=== PATIENT | female | born 1970 | race Caucasian/White ===

== ENCOUNTER 2017-07-08 07:49 | Day surgery (SDC) | payer MEDICAID ==
[~2017-07-08 07:49] MED LIST: CEFAZOLIN 1 GM INJ; CEFAZOLIN 1 GM/50 ML (PMX) 50 ML IVPB; DEXAMETHASONE 4 MG/ML 1 ML INJ; ONDANSETRON 4 MG INJ; SOD CHLORIDE 0.9% 1,000 ML IV
[2017-07-08] MEDS: INSULIN ASPART [NOVOLOG] 3 ML PEN SC ×2 (10:01→11:29)
[2017-07-08] MEDS ORDERED: HEPARIN 1000 UNITS/ML 10 ML INJ (11:22)
[2017-07-08] MEDS ORDERED: LIDOCAINE 1% (MPF) 30 ML INJ (11:22)
[2017-07-08] MEDS ORDERED: GLUCOSE GEL 15 GRAM TUBE PO ×2 (11:30)
[2017-07-08] MEDS ORDERED: DEXTROSE 50% 50 ML SYRINGE IV ×2 (11:30)
[2017-07-08] MEDS ORDERED: GLUCOSE GEL 15 GRAM TUBE BUCCAL (11:30)
[2017-07-08] MEDS ORDERED: GLUCAGON 1 MG INJ IM (11:30)
[2017-07-08] MEDS ORDERED: MIDAZOLAM 1 MG/ML 2 ML INJ (11:51)
[2017-07-08] MEDS ORDERED: LIDOCAINE 2% (SDV) 5 ML INJ (11:51)
[2017-07-08] MEDS ORDERED: PROPOFOL 20 ML (11:51)
[2017-07-08] MEDS ORDERED: HYDROmorphONE (0.2 MG/ML) 10ML SYG IV (12:48)
[2017-07-08] MEDS ORDERED: ONDANSETRON 4 MG INJ (12:48)
[2017-07-08] MEDS ORDERED: hydrALAzine 20 MG INJ (12:55)
[2017-07-08] MEDS ORDERED: LABETALOL HCL 20MG INJ IV (13:00)
[2017-07-08] MEDS: HYDROmorphONE (0.2 MG/ML) 10ML SYG IV (13:09)
[2017-07-08] MEDS: hydrALAzine 20 MG INJ IV (13:09)
[2017-07-08] MEDS: ONDANSETRON 4 MG INJ IV (13:09)
== END 2017-07-08 14:38 | disposition home or self-care (01) ==
LOC: SDS 07:49
DX: Z45.2 Encounter for adjustment and management of vascular access device (principal); Z85.3 Personal history of malignant neoplasm of breast; E11.9 Type 2 diabetes mellitus without complications; I10 Essential (primary) hypertension; E66.9 Obesity, unspecified; Z68.38 Body mass index [BMI] 38.0-38.9, adult
CPT/HCPCS: 36590; 82962; 84703; 88300

== ENCOUNTER 2017-11-01 20:23 | Emergency (ER) | payer MEDICAID | END 2017-11-02 00:05 | disposition home or self-care (01) | LOC: FTE 11-02 00:05 | DX: L02.415 Cutaneous abscess of right lower limb (principal); I10 Essential (primary) hypertension; E11.9 Type 2 diabetes mellitus without complications; Z85.3 Personal history of malignant neoplasm of breast | CPT/HCPCS: 99284; Z7502 ==

== ENCOUNTER 2018-06-01 22:22 | Emergency (ER) | payer MEDICAID ==
[2018-06-02] MEDS: DIPHENHYDRAMINE 50 MG INJ IV (02:53)
[2018-06-02] MEDS: METOCLOPRAMIDE 10 MG INJ IV (02:53)
[2018-06-02 03:06] LABS: ADD MAN DIFF? NO
[2018-06-02 03:08] LABS: WHITE BLOOD COUNT 9.3 10^3/ul (4.8-10.8)
[2018-06-02 03:08] LABS: BASOPHIL # 0.1 10^3/ul (0.0-0.1); BASOPHILS % 0.6 % (0.0-2.0); EOSINOPHILS # 0.1 10^3/ul (0.0-0.5); EOSINOPHILS % 1.2 % (0.0-7.0); HEMATOCRIT 43.4 % (37.0-47.0); HEMOGLOBIN 14.6 g/dl (12.0-16.0); LYMPHOCYTES # 4.2 10^3/ul (0.8-2.9); LYMPHOCYTES % 45.1 % (15.0-51.0); MEAN CORPUSCULAR HEMOGLOBIN 28.5 pg (29.0-33.0); MEAN CORPUSCULAR HGB CONC 33.6 g/dl (32.0-37.0); MEAN CORPUSCULAR VOLUME 84.8 fl (82.0-101.0); MEAN PLATELET VOLUME 10.4 fl (7.4-10.4); MONOCYTE # 0.7 10^3/ul (0.3-0.9); MONOCYTES % 7.2 % (0.0-11.0); NEUTROPHIL # 4.2 10^3/ul (1.6-7.5); NEUTROPHILS % 45.6 % (39.0-77.0); PLATELET COUNT 221 10^3/UL (140-415); RED BLOOD COUNT 5.12 10^6/ul (4.20-5.40); RED CELL DISTRIBUTION WIDTH 12.1 % (11.5-14.5)
[2018-06-02 03:17] LABS: ADD UMIC NO; UR ASCORBIC ACID NEGATIVE (NEGATIVE); UR BILIRUBIN (Dip) NEGATIVE (NEGATIVE); UR BLOOD (Dip) NEGATIVE (NEGATIVE); UR CLARITY CLEAR (CLEAR); UR COLOR YELLOW (YELLOW); UR GLUCOSE (Dip) 3+ mg/dL (NEGATIVE); UR KETONES (Dip) 1+ mg/dL (NEGATIVE); UR LEUKOCYTE ESTERASE (Dip) NEGATIVE Leu/ul (NEGATIVE); UR NITRITE (Dip) NEGATIVE (NEGATIVE); UR SPECIFIC GRAVITY (Dip) 1.042 (1.003-1.030); UR TOTAL PROTEIN (Dip) NEGATIVE (NEGATIVE); UR UROBILINOGEN (Dip) NEGATIVE (NEGATIVE)
[2018-06-02 03:27] LABS: ALANINE AMINOTRANSFERASE 60 IU/L (13-69); ALBUMIN 4.3 g/dl (3.3-4.9); ALBUMIN/GLOBULIN RATIO 1.19; ALKALINE PHOSPHATASE 135 IU/L (42-121); ANION GAP 9 (5-13); ASPARTATE AMINO TRANSFERASE 61 IU/L (15-46); BILIRUBIN,INDIRECT 0.5 mg/dl (0-1.1); BILIRUBIN,TOTAL 0.5 mg/dl (0.2-1.3); BLOOD UREA NITROGEN 12 mg/dl (7-20); CALCIUM 9.4 mg/dl (8.4-10.2); CARBON DIOXIDE 27 mmol/L (21-31); CHLORIDE 100 mmol/L (97-110); CREATININE 0.43 mg/dl (0.44-1.00); Estimated GFR > 60 mL/min (>60); GLUCOSE 341 mg/dl (70-220); LIPASE 133 U/L (23-300); POTASSIUM 3.9 mmol/L (3.5-5.1); SODIUM 136 mmol/L (135-144); TOTAL PROTEIN 7.9 g/dl (6.1-8.1)
[2018-06-02 03:28] LABS: INR 0.92; PROTIME 12.5 Sec (11.9-14.9)
[2018-06-02 03:29] LABS: PARTIAL THROMBOPLASTIN TIME 28.4 Sec (23.0-35.0)
[2018-06-02 03:39] LABS: TROPONIN-I < 0.012 ng/ml (0.000-0.120)
[2018-06-02] MEDS: metFORMIN 500 MG TAB PO (05:05)
== END 2018-06-02 05:15 | disposition home or self-care (01) ==
LOC: FTE 22:22
DX: R42 Dizziness and giddiness (principal); E11.65 Type 2 diabetes mellitus with hyperglycemia; I10 Essential (primary) hypertension; R07.9 Chest pain, unspecified; Z79.84 Long term (current) use of oral hypoglycemic drugs; Z85.3 Personal history of malignant neoplasm of breast
CPT/HCPCS: 80053; 81003; 81025; 83690; 84484; 85025; 85610; 85730; 87400; 93005; 96374; 96375; 99284-25